=== PATIENT | male | born 1980 | race Two or more races ===

== ENCOUNTER 2022-02-20 10:32 | Emergency (ER) | payer OTHER ==
[~2022-02-20] VITALS: Ht 170.2 cm; Wt 86.0 kg
[2022-02-20 12:11] VITALS: BP 122/75
[2022-02-20] MEDS ORDERED: CIP03OS RIGHTEYE (13:11)
== END 2022-02-20 13:26 | disposition home or self-care (01) ==
LOC: ER 10:32
DX: T15.01XA Foreign body in cornea, right eye, initial encounter (principal); W22.8XXA Striking against or struck by other objects, initial encounter; Y93.89 Activity, other specified; Y92.89 Other specified places as the place of occurrence of the external cause; Y99.8 Other external cause status
CPT/HCPCS: 65222